=== PATIENT | male | born 2000 | race Caucasian/White ===

== ENCOUNTER 2024-01-20 05:06 | Day surgery (SDC) | payer OTHER ==
[2024-01-14 17:32] VITALS: BMI 24.3
[2024-01-20] MEDS ORDERED: PROPOFOL 40 ML ONE (12:30)
[2024-01-20] MEDS ORDERED: FENTANYL CITRATE/PF 50 MCG/ML VIAL ONE ×5 (12:31→14:32)
[2024-01-20] MEDS ORDERED: LIDOCAINE HCL/PF 2% SDV 5ML VIAL ONE (12:31)
[2024-01-20] MEDS ORDERED: MIDAZOLAM HCL 2 MG/2 ML SINGLE DOSE VIAL ONE (12:31)
[2024-01-20] MEDS ORDERED: SUCCINYLCHOLINE CHLORIDE 200 MG/10 ML SYRINGE ONE (12:45)
[2024-01-20] MEDS: ceFAZolin SODIUM 1 GM VIAL IVPB ONE (12:45)
[2024-01-20] MEDS ORDERED: ONDANSETRON 4 MG/2 ML VIAL ONE (12:51)
[2024-01-20] MEDS ORDERED: DEXAMETHASONE SOD PHOSPHATE 4 MG/1 ML VIAL ONE (12:51)
[2024-01-20] MEDS ORDERED: ELECTROLYTE-148 SOLN 1,000 ML IV SCH (13:30)
[2024-01-20] MEDS ORDERED: ONDANSETRON 4 MG/2 ML VIAL IVPUSH PRN (13:34)
[2024-01-20] MEDS: ACETAMINOPHEN 1000 MG/100 ML BAG IVPB ONE ×2 (13:38→14:43)
[2024-01-20] MEDS ORDERED: LACTATED RINGERS SOLUTION 1,000 ML IV SCH (13:45)
[2024-01-20 15:09] VITALS: RESP 18
[2024-01-20] MEDS ORDERED: oxyCODONE HCL 5 MG TABLET ONE ×2 (15:19→17:05)
[2024-01-20] MEDS: oxyCODONE HCL 5 MG TABLET PO ONE ×2 (15:22→17:10)
[2024-01-20 16:45] VITALS: TEMP 98
[2024-01-20 17:07] VITALS: BP 130/83; PULSE 81
== END 2024-01-20 17:35 | disposition home or self-care (01) ==
LOC: JASU-SURG 05:06
PROVIDERS: ATTEND Urology
PROC: 0T768DZ Dilation of Right Ureter with Intraluminal Device, Via Natural or Artificial Opening Endoscopic (ICD-10-PCS; 2024-01-20)
PROC: 0T7B8DZ Dilation of Bladder with Intraluminal Device, Via Natural or Artificial Opening Endoscopic (ICD-10-PCS; principal; 2024-01-20 14:45)
DX: N13.0 Hydronephrosis with ureteropelvic junction obstruction (principal)
CPT/HCPCS: 76000-TC-FY; 94760; C1769; C2617; J0131